=== PATIENT | female | born 1995 | race Two or more races ===

== ENCOUNTER 2017-08-29 09:03 | Emergency (ER) | payer SELFPAY ==
[~2017-08-29] VITALS: Ht 177.8 cm; Wt 56.7 kg
[2017-08-29 09:17] VITALS: BP 118/70
[2017-08-29 09:29] LABS: APPEARANCE,URINE SLIGHTLY CLOUDY; BILIRUBIN, URINE NEGATIVE (NEGATIVE); GLUCOSE, URINE (UA) NEGATIVE (NEGATIVE); KETONES,URINE 2+ (NEGATIVE); LEUKOCYTE ESTERASE ,URINE 3+ (NEGATIVE); NITRITE,URINE NEGATIVE (NEGATIVE); PH,URINE 6 (4.5-8.0); PROTEIN,URINE 2+ (NEGATIVE); UROBILINOGEN,URINE NORMAL MG/DL (0.0-1.0)
[2017-08-29 09:45] LABS: COLOR,URINE YELLOW
[2017-08-29 10:28] VITALS: BP 116/67
--- NOTE | 2017-08-29 11:05 | Emergency Room Report ---
History of Present Illness General Chief Complaint: Female Urogenital Problems Source: Patient Present Illness HPI Unprotected sex with boyfriend over last weekend. Now since Thursday has dysuria and d/c. Used Monostat last night. Concern as friend suggest possible herpes. Pain rated 10/10 burning, not radiating. Discharge mostly white. Has had UTI in past. LNMP = normal 2/. Wheezing with cannibis. Has used inhaler in past. Denies asthma, but states fam hx. No rashes, joint pain, adenopathy, headache. (Never pelvic in past.) Allergies: Coded Allergies: No Known Allergies (Unverified , 08/29/17) Patient History Past Medical History: see triage record Pertinent Family History: asthma Social History: Reports: drug use - THC, Denies: smoking, alcohol use Social History Narrative at home Last Menstrual Period: 08/07/17 : 0 Para: 0 Reviewed Nursing Documentation: PMH: Agreed, PSxH: Agreed Nursing Documentation-PMH Past Medical History: No Stated History Review of Systems All Other Systems: negative except mentioned in HPI Physical Exam Vital Signs Date Time Temp Pulse Resp B/P (MAP) Pulse Ox O2 Delivery O2 Flow Rate FiO2 08/29/17 09:07 98.3 55 18 115/69 98 Room Air 98.2 Sp02 EP Interpretation: reviewed, normal General Appearance: well appearing, no apparent distress, GCS 15 Head: normocephalic Eyes: bilateral eye normal inspection, bilateral eye PERRL ENT: moist mucus membranes Neck: supple Respiratory: lungs clear, normal breath sounds Cardiovascular #1: regular rate, rhythm Cardiovascular #2: 2+ radial (R) Gastrointestinal: normal inspection, normal bowel sounds, non tender, no mass, non-distended Genitourinary: no CVA tenderness, adnexa normal, cervix normal, ext genitalia/ vag normal - no vesicular lesions, os closed, other - uterus slightly large, anterior, white/yellow d/c. Musculoskeletal: back normal, gait/station normal, normal range of motion Neurologic: alert, oriented x3, grossly normal Psychiatric: mood/affect normal Skin: normal inspection, warm/dry Medical Decision Making Diagnostic Impression: Primary Impression: UTI (urinary tract infection) Qualified Codes: N30.00 - Acute cystitis without hematuria Additional Impressions: Vaginitis Qualified Codes: N76.0 - Acute vaginitis Bronchospasm ER Course Patient with dysuria and genital pain post sexual intercourse. DDx: UTI, vaginitis, STD, amongst others. Based on exam, vaginitis suspect. Risk for STD low. Will send UA, preg and wet mount. Treat with analgesia. UA with pyuria. WM neg (felt to be false -). Still with pain. Pyridium given with neg preg. Improved. (Requested albuterol - lungs clear.) Patient stable for outpatient observation and treatment. Laboratory Tests Test 08/29/17 09:17 Urine Color Yellow Urine Appearance Slightly cloudy Urine pH 6 (4.5-8.0) Urine Specific [place] 1.020 (1.005-1.035) Urine Protein 2+ (NEGATIVE) H Urine Glucose (UA) Negative (NEGATIVE) Urine Ketones 2+ (NEGATIVE) H Urine Occult Blood 4+ (NEGATIVE) H Urine Nitrite Negative (NEGATIVE) Urine Bilirubin Negative (NEGATIVE) Urine Urobilinogen Normal MG/DL (0.0-1.0) Urine Leukocyte Esterase 3+ (NEGATIVE) H Urine RBC 5-10 /HPF (0 - 2) H Urine WBC 10-15 /HPF (0 - 2) H Urine Squamous Epithelial Cells Few /LPF (NONE/OCC) Urine Bacteria Few /HPF (NONE) Urine HCG, Qualitative Negative Microbiology Date/Time Source Procedure Growth Status 08/29/17 09:53 Vaginal Wet Prep - Final Complete Last Vital Signs Date Time Temp Pulse Resp B/P (MAP) Pulse Ox O2 Delivery O2 Flow Rate FiO2 08/29/17 11:15 98.0 56 17 116/67 98 Room Air 98.0 Status: improved Disposition: HOME, SELF-CARE Condition: Improved Scripts Albuterol Sulfate* (ALBUTEROL SULFATE MDI*) 8.5 Gm Hfa.aer.ad 2 PUFF INH Q6H, #1 EA 0 Refills Prov: Bernard Danielle M.D. 08/29/17 Ibuprofen* (MOTRIN*) 600 Mg Tablet 600 MG ORAL Q6H Y for For Pain, #16 TAB Prov: Bernard Danielle M.D. 08/29/17 Fluconazole (FLUCONAZOLE) 100 Mg Tablet 100 MG ORAL ONCE, #1 TAB 0 Refills Take at the end of the course of antibiotics. Prov: Bernard Danielle M.D. 08/29/17 Phenazopyridine Hcl* (PYRIDIUM*) 100 Mg Tablet 100 MG ORAL THREE TIMES A DAY, #9 TAB Prov: Bernard Danielle M.D. 08/29/17 Metronidazole* (FLAGYL*) 500 Mg Tablet 500 MG ORAL TID, #21 TAB Prov: Bernard Danielle M.D. 08/29/17 Nitrofurantoin Monohyd/M-Cryst* (MACROBID 100 MG*) 100 Mg Capsule 100 MG ORAL EVERY 12 HOURS, #14 CAP Prov: Bernard Danielle M.D. 08/29/17 Referrals: NOT CHOSEN [place]/,REFERRING (PCP) Bernard Danielle M.D. Aug 29, 2017 11:05
[2017-08-29] MEDS ORDERED: FLUCONAZOLE100 MG ORAL (11:08)
[2017-08-29] MEDS ORDERED: METRONIDAZOLE500 MG ORAL (11:08)
[2017-08-29] MEDS ORDERED: NITROFURANTOIN100 M2 ORAL (11:08)
[2017-08-29] MEDS ORDERED: PHENAZOPYRIDIN100 MG ORAL (11:08)
[2017-08-29] MEDS ORDERED: IBUPROFEN600 MG ORAL (11:09)
[2017-08-29] MEDS ORDERED: ALBUTEROL SULF8.5 GM INH (11:13)
[2017-08-29 11:15] VITALS: BP 116/67
== END 2017-08-29 11:19 | disposition home or self-care (01) ==
LOC: EMR 09:25
DX: N39.0 Urinary tract infection, site not specified (principal); N76.0 Acute vaginitis
CPT/HCPCS: 81003; 81025; 87086; 87210; 99284